=== PATIENT | female | born 1975 ===

== ENCOUNTER 2024-06-13 12:30 | Inpatient (IN) | payer OTHER ==
[~2024-06-13] VITALS: Ht 162.6 cm; Wt 68.0 kg
[2024-06-13 13:24] VITALS: BP 145/72
[2024-06-20] MEDS ORDERED: CEFAZOLIN SODIUM 1,000 MG VIAL IV ONE (11:30)
[2024-06-20] MEDS ORDERED: SUGAMMADEX SODIUM 200 MG/2 ML VIAL IV ONE ×2 (11:45)
[2024-06-20] MEDS ORDERED: MORPHINE SULFATE 4 MG/ML VIAL IV ONE ×2 (12:30→13:00)
[2024-06-20] MEDS ORDERED: RINGERS SOLUTION,LACTATED 1,000 ML IV SCH (14:00)
[2024-06-20] MEDS ORDERED: DEXTROSE 5 % AND 0.9 % NACL 1,000 ML IV SCH (14:00)
[2024-06-20] MEDS ORDERED: ONDANSETRON HCL 2 MG/ML VIAL IV ONE (15:20)
[2024-06-20 16:30] VITALS: BP 145/72
[2024-06-20] MEDS ORDERED: CEFAZOLIN SODIUM 1,000 MG VIAL IV SCH (17:00)
[2024-06-20] MEDS ORDERED: PROMETHAZINE HCL 50 MG/ML AMPUL IM SCH (17:00)
[2024-06-20] MEDS ORDERED: MEPERIDINE HCL/PF 50 MG,MEPERIDINE HCL/PF 25 MG IM SCH (17:00)
[2024-06-20] MEDS ORDERED: ONDANSETRON HCL 2 MG/ML VIAL IV SCH (17:00)
[2024-06-21 01:01] VITALS: BP 118/66
[2024-06-21] MEDS ORDERED: OxyCODONE HCL/APAP UD (PERCOCET) PO SCH (06:00)
[2024-06-21] MEDS ORDERED: SIMETHICONE 125 MG CAPSULE PO SCH (09:00)
[2024-06-21 09:18] VITALS: BP 143/58
[2024-06-21 12:00] VITALS: BP 150/69
[2024-06-22 00:21] VITALS: BP 132/78
[2024-06-22 05:57] VITALS: BP 133/80
[2024-06-22 09:19] VITALS: BP 150/70
== END 2024-06-22 11:17 | disposition home or self-care (01) | DRG 743 ==
LOC: O/R 06-20 05:00 → SURH 06-20 12:30 → OB/GYN 06-20 14:29 → SURH 06-20 16:45 → OB/GYN 06-22 11:17
PROVIDERS: ADMIT Obstetrics & Gynecology; ATTEND Obstetrics & Gynecology
PROC: 0UB10ZZ Excision of Left Ovary, Open Approach (ICD-10-PCS; 2024-06-20)
PROC: 0UN10ZZ Release Left Ovary, Open Approach (ICD-10-PCS; 2024-06-20)
PROC: 0UB90ZZ Excision of Uterus, Open Approach (ICD-10-PCS; principal; 2024-06-20 16:45)
DX: D25.9 Leiomyoma of uterus, unspecified (principal); Z20.822 Contact with and (suspected) exposure to COVID-19; N80.102 Endometriosis of left ovary, unspecified depth